=== PATIENT | male | born 1960 | race Asian ===

== ENCOUNTER 2019-06-22 16:49 | Outpatient (CLI) | payer OTHER ==
--- NOTE | 2019-06-23 14:54 | Diagnostic Imaging Report ---
Indication: Abdominal pain Technique: Supine and upright views of the abdomen, one view of the chest Comparison: none Findings: Bowel gas pattern is unremarkable. No gaseous distention of large or small bowel, significant air-fluid levels, or evidence of free intraperitoneal air. No masses or unusual calcifications. Chest demonstrates clear lungs, no infiltrates, effusions, congestion. Normal cardiac mediastinal silhouette. There is a surgical screw in the right shoulder or scapula. There are degenerative changes of the thoracic and lumbar spine Impression: No acute process. Findings as noted
== END 2019-06-22 18:49 | disposition home or self-care (01) ==
LOC: RAD 16:49
DX: R52 Pain, unspecified (principal)
CPT/HCPCS: 74022